=== PATIENT | female | born 1990 | race Two or more races ===

== ENCOUNTER 2020-05-01 16:20 | Emergency (ER) | payer OTHER ==
[~2020-05-01] VITALS: Ht 167.6 cm; Wt 49.9 kg
[2020-05-01] VITALS (8 sets, daily range): BP systolic 98–120; BP diastolic 50–72
[2020-05-01] MEDS ORDERED: Naloxone 1mg/ml 2ml ONE (16:24)
[2020-05-01] MEDS ORDERED: Naloxone 1mg/ml 2ml IVP ONE (16:30)
--- NOTE | 2020-05-01 17:10 | Diagnostic Imaging Report ---
EXAM: CT Head Without Intravenous Contrast CLINICAL HISTORY: Altered mental status TECHNIQUE: Axial computed tomography images of the head/brain without intravenous contrast. CTDI is 53.4 mGy and DLP is 965.4 mGy-cm. One or more of the following dose reduction techniques were used: automated exposure control, adjustment of the mA and/or kV according to patient size, use of iterative reconstruction technique. COMPARISON: No relevant prior studies available. FINDINGS: Brain: Unremarkable. No hemorrhage. No significant white matter disease. No edema. Ventricles: Unremarkable. No ventriculomegaly. Bones/joints: Unremarkable. No acute fracture. Soft tissues: Unremarkable. Sinuses: Unremarkable as visualized. No acute sinusitis. Mastoid air cells: Unremarkable as visualized. No mastoid effusion. IMPRESSION: No acute finding.
[2020-05-01 17:15] LABS: BASOPHILS % (AUTO) 1.7 % (0.0-2.0); EOSINOPHILS % (AUTO) 0.9 % (0.0-3.0); HEMATOCRIT 36.6 % (37.0-47.0); HEMOGLOBIN 12.7 G/DL (12.0-16.0); LYMPHOCYTES % (AUTO) 24.7 % (20.0-45.0); MEAN CORPUSCULAR VOLUME 96 FL (80-99); NEUTROPHILS % (AUTO) 61.8 % (45.0-75.0); PLATELET COUNT 276 K/UL (150-450); RED BLOOD COUNT 3.83 M/UL (4.20-5.40); RED CELL DISTRIBUTION WIDTH 12.5 % (11.6-14.8); WHITE BLOOD COUNT 9.1 K/UL (4.8-10.8)
[2020-05-01 17:18] LABS: ANION GAP 17 mmol/L (5-15); BLOOD UREA NITROGEN 14 mg/dL (7-18); CALCIUM 9.1 MG/DL (8.5-10.1); CARBON DIOXIDE 22 MMOL/L (21-32); CHLORIDE 103 MMOL/L (98-107); CREATININE 0.6 MG/DL (0.55-1.30); POTASSIUM 3.3 MMOL/L (3.5-5.1); SODIUM 142 MMOL/L (136-145)
[2020-05-01 17:23] LABS: ALANINE AMINOTRANSFERASE 20 U/L (12-78); ALBUMIN/GLOBULIN RATIO 1.1 (1.0-2.7); ALKALINE PHOSPHATASE 67 U/L (46-116); ASPARTATE AMINO TRANSFERASE 20 U/L (15-37); BILIRUBIN,TOTAL 0.8 MG/DL (0.2-1.0)
--- NOTE | 2020-05-01 17:34 | NUR ---
1620: pt biba for cocaine OD per EMS. pt unresponsive on arrival, absent gag reflex, pinpoint pupils, fixed pupils. pt presents as pale, mottled, extremities cold to touch, bradycardic & bradpnea. pt had IVs initiated sloop captain. pt given 1 dose narcan sloop captain, no change in pt condition. pt placed on continuous cardiac/O2 monitor. pt oral cavity suctioned, placed on NRB 15LPM satting 100%. IV initiated, blood drawn & sent to lab. pt urine obtained, sent to lab. pt rectal temp 93.5, notified. breezyggniyah applied for external warmth. pt medicated per eMAR. pt taken to CT EKG performed. RN 1:1 with pt, sitting at bedside.
--- NOTE | 2020-05-01 17:37 | NUR ---
Rios cosby in [facility] - 05/01/20 at 1754 by MATTEO Patient to be transferred to another community.
[2020-05-01 17:57] LABS: APPEARANCE,URINE SLIGHTLY CLOUDY; BILIRUBIN, URINE NEGATIVE (NEGATIVE); GLUCOSE, URINE (UA) NEGATIVE (NEGATIVE); KETONES,URINE 4+ (NEGATIVE); LEUKOCYTE ESTERASE ,URINE NEGATIVE (NEGATIVE); NITRITE,URINE NEGATIVE (NEGATIVE); PH,URINE 5 (4.5-8.0); PROTEIN,URINE 2+ (NEGATIVE); UROBILINOGEN,URINE 1 MG/DL (0.0-1.0)
[2020-05-01 17:58] LABS: COLOR,URINE YELLOW
--- NOTE | 2020-05-01 18:19 | NUR ---
pt on continuous cardiac/O2 monitor. pt maintaing airway. pt responds to deep painful stimuli. pupils reactive, brisk. pt still nonverbal. rectal temp 93.8 with baerhugger applied. MD notified. pt positive urine tox screen. MD notified. rn requested flumazenil for benzo od reversal, per md not indicated to give at this time.
--- NOTE | 2020-05-01 19:05 | NUR ---
handoff care to alicja ASH. pt on continuous cardiac/O2 monitor.
--- NOTE | 2020-05-01 20:04 | Emergency Room Report ---
History of Present Illness General Chief Complaint: Overdose Source: EMS Present Illness HPI 29-year-old female presents for evaluation. Brought in by EMS for overdose. Boyfriend called 911. States she used cocaine. On arrival patient unresponsive. Not answering questions. Pinpoint pupils. Given Narcan without improvement. No signs of distress on arrival. No other aggravating relieving factors. No other associated symptoms Allergies: Coded Allergies: UNABLE TO ASSESS (Unverified , 05/01/20) pt aao x0 at this time COVID-19 Screening Contact w/high risk pt: No Experienced COVID-19 symptoms?: No COVID-19 Testing performed TELECOM NETWORK MANAGER: No Patient History Past Medical History: none Past Surgical History: none Pertinent Family History: none Social History: Reports: drug use; Denies: smoking, alcohol use Last Menstrual Period: unknown Now: No Immunizations: UTD Reviewed Nursing Documentation: PMH: Agreed; PSxH: Agreed Review of Systems All Other Systems: limited Physical Exam Vital Signs Date Time Temp Pulse Resp B/P (MAP) Pulse Ox O2 Delivery O2 Flow Rate FiO2 05/01/20 16:14 98.4 58 18 121/82 (95) 95 05/01/20 16:20 Non-Rebreather 15.0 05/01/20 16:20 100 Sp02 EP Interpretation: reviewed, normal General Appearance: no apparent distress, lethargic Head: normocephalic, atraumatic Eyes: bilateral eye normal inspection, bilateral eye PERRL ENT: hearing grossly normal, normal pharynx, no angioedema, normal voice Neck: full range of motion, supple/symm/no masses Respiratory: chest non-tender, lungs clear, normal breath sounds, speaking full sentences Cardiovascular #1: regular rate, rhythm, no edema Cardiovascular #2: 2+ carotid (R), 2+ carotid (L), 2+ radial (R), 2+ radial (L), 2+ dorsalis pedis (R), 2+ dorsalis pedis (L) Gastrointestinal: normal bowel sounds, non tender, soft, non-distended, no guarding, no rebound Rectal: deferred Genitourinary: normal inspection, no CVA tenderness Musculoskeletal: back normal, normal range of motion, gait/station normal, non- tender Neurologic: other - lethargic Psychiatric: other - lethargic Reflexes: 3+ bicep (R), 3+ bicep (L), 3+ tricep (R), 3+ tricep (L), 3+ knee (R), 3+ knee (L) Skin: no rash Lymphatic: no adenopathy Medical Decision Making Diagnostic Impression: Primary Impression: Drug overdose Qualified Codes: T50.901A - Poisoning by unspecified drugs, medicaments and biological substances, accidental (unintentional), initial encounter ER Course Hospital Course 29-year-old female presents altered. Use cocaine Differential diagnoses include: Psychosis, EtOH, drug abuse Clinical course patient placed on stretcher. On monitor and storage bin tender. After initial history and physical ordered labs, IV fluids, EKG, CT brain. Labs reviewed-electrolytes okay, no leukocytosis, hemoglobin/hematocrit stable, tox panel + for multilple substances EKGnormal sinus rhythm no acute ischemic changes interpreted by me CT brain shows no acute pathology Given Narcan. No significant improvement however not longer apneic. Allowed to sleep. Vitals stable. Protecting airway. Patient now alert oriented x3. Admits to cocaine use. Take she is states she takes Xanax as well. Denies SI or HI. P safe for discharge with close outpatient follow-up i. I feel this is a highly complex case requiring extensive working including EKG/Rhythm strip, Xray/CT/US, Blood/urine lab work, repeat exams while in ED, and administration of strong opiates/narcotics for pain control, admission to hospital or close patient follow up. Diagnosis -drug overdose Stable and discharged to home. Followup with PMD. Return to ED if symptoms recur or worsen Labs Test 05/01/20 16:40 05/01/20 16:46 White Blood Count 9.1 K/UL (4.8-10.8) Red Blood Count 3.83 M/UL (4.20-5.40) Hemoglobin 12.7 G/DL (12.0-16.0) Hematocrit 36.6 % (37.0-47.0) Mean Corpuscular Volume 96 FL (80-99) Mean Corpuscular Hemoglobin 33.1 PG (27.0-31.0) Mean Corpuscular Hemoglobin Concent 34.7 G/DL (32.0-36.0) Red Cell Distribution Width 12.5 % (11.6-14.8) Platelet Count 276 K/UL (150-450) Mean Platelet Volume 6.2 FL (6.5-10.1) Neutrophils (%) (Auto) 61.8 % (45.0-75.0) Lymphocytes (%) (Auto) 24.7 % (20.0-45.0) Monocytes (%) (Auto) 11.0 % (1.0-10.0) Eosinophils (%) (Auto) 0.9 % (0.0-3.0) Basophils (%) (Auto) 1.7 % (0.0-2.0) Sodium Level 142 MMOL/L (136-145) Potassium Level 3.3 MMOL/L (3.5-5.1) Chloride Level 103 MMOL/L (98-107) Carbon Dioxide Level 22 MMOL/L (21-32) Anion Gap 17 mmol/L (5-15) Blood Urea Nitrogen 14 mg/dL (7-18) Creatinine 0.6 MG/DL (0.55-1.30) Estimat Glomerular Filtration Rate > 60 mL/min (>60) Glucose Level 84 MG/DL (74-106) Calcium Level 9.1 MG/DL (8.5-10.1) Total Bilirubin 0.8 MG/DL (0.2-1.0) Aspartate Amino Transf (AST/SGOT) 20 U/L (15-37) Alanine Aminotransferase (ALT/SGPT) 20 U/L (12-78) Alkaline Phosphatase 67 U/L (46-116) Total Protein 7.6 G/DL (6.4-8.2) Albumin 4.0 G/DL (3.4-5.0) Globulin 3.6 g/dL Albumin/Globulin Ratio 1.1 (1.0-2.7) Salicylates Level 0.4 ug/mL (2.8-20) Acetaminophen Level < 2 MCG/ML (10-30) Serum Alcohol < 3 mg/dL Urine Color Yellow Urine Appearance Slightly cloudy Urine pH 5 (4.5-8.0) Urine Specific Jeffrey 1.030 (1.005-1.035) Urine Protein 2+ (NEGATIVE) Urine Glucose (UA) Negative (NEGATIVE) Urine Ketones 4+ (NEGATIVE) Urine Blood 1+ (NEGATIVE) Urine Nitrite Negative (NEGATIVE) Urine Bilirubin Negative (NEGATIVE) Urine Urobilinogen 1 MG/DL (0.0-1.0) Urine Leukocyte Esterase Negative (NEGATIVE) Urine RBC 2-4 /HPF (0 - 2) Urine WBC 0-2 /HPF (0 - 2) Urine Squamous Epithelial Cells Moderate /LPF (NONE/OCC) Urine Amorphous Sediment Few /LPF (NONE) Urine Bacteria Few /HPF (NONE) Urine Mucus Moderate /LPF (NONE/OCC) Urine HCG, Qualitative Negative (NEGATIVE) Urine Opiates Screen Negative (NEGATIVE) Urine Barbiturates Screen Negative (NEGATIVE) Phencyclidine (PCP) Screen Negative (NEGATIVE) Urine Amphetamines Screen Positive (NEGATIVE) Urine Benzodiazepines Screen Positive (NEGATIVE) Urine Cocaine Screen Positive (NEGATIVE) Urine Marijuana (THC) Screen Negative (NEGATIVE) EKG Diagnostic Results Rate: normal Rhythm: NSR ST Segments: no acute changes ASA given to the pt in ED: No Rhythm Strip Diag. Results EP Interpretation: yes Rhythm: NSR, no PVC's, no ectopy CT/MRI/US Diagnostic Results CT/MRI/US Diagnostic Results : Imaging Test Ordered: CT head Impression Procedure: CT Head no Contrast EXAM: CT Head Without Intravenous Contrast CLINICAL HISTORY: Altered mental status TECHNIQUE: Axial computed tomography images of the head/brain without intravenous contrast. CTDI is 53.4 mGy and DLP is 965.4 mGy-cm. One or more of the following dose reduction techniques were used: automated exposure control, adjustment of the mA and/or kV according to patient size, use of iterative reconstruction technique. COMPARISON: No relevant prior studies available. FINDINGS: Brain: Unremarkable. No hemorrhage. No significant white matter disease. No edema. Ventricles: Unremarkable. No ventriculomegaly. Bones/joints: Unremarkable. No acute fracture. Soft tissues: Unremarkable. Sinuses: Unremarkable as visualized. No acute sinusitis. Mastoid air cells: Unremarkable as visualized. No mastoid effusion. IMPRESSION: No acute finding. Last Vital Signs Date Time Temp Pulse Resp B/P (MAP) Pulse Ox O2 Delivery O2 Flow Rate FiO2 05/01/20 18:56 91 17 105/60 98 Non-Rebreather 15.0 05/01/20 17:48 93.8 05/01/20 16:20 100 Status: improved Disposition: HOME, SELF-CARE Condition: Stable Referrals: NOT CHOSEN IPA/,REFERRING (PCP) Maikel Carreno MD May 01, 2020 20:04
--- NOTE | 2020-05-01 20:39 | NUR ---
ER DISCHARGE NOTE: Patient is cleared to be discharged per ERMD, pt is aox4, on room air, with stable vital signs. pt was given dc and prescription instructions, pt was able to verbalize understanding, pt id band and iv site removed without complications. pt is able to ambulate with steady gait. pt took all belongings. patient left w/friend
--- NOTE | 2020-05-02 16:31 | Cardiology Report ---
APPROVED REPORT EKG Measurement Heart [id number] <Conclusion> Sinus bradycardia with sinus arrhythmia Cannot rule out Inferior infarct, age undetermined T wave abnormality, consider anterior ischemia Abnormal ECG
== END 2020-05-01 20:39 | disposition home or self-care (01) ==
LOC: EDBD 16:20 → EMR 17:06
DX: T50.901A Poisoning by unspecified drugs, medicaments and biological substances, accidental (unintentional), initial encounter (principal); X58.XXXA Exposure to other specified factors, initial encounter; Y92.9 Unspecified place or not applicable
CPT/HCPCS: 36415; 70450; 80053; 80307; 81003; 81025; 85025; 93005; 96361; 96374; 99284; G0480; J2310